=== PATIENT | male | born 1950 | race African-American/Black ===

== ENCOUNTER → 2016-04-15 | Outpatient (CLI) | payer MEDICARE ==
[~2016-04-15] MED LIST: ARGI500T PO; DESV100T PO; MAGN250T5 PO; PREG75CA PO; TEST75PE6 IL
--- NOTE | 2016-04-15 15:04 | KCIC ---
PROCEDURE Lumbar spine, five views. HISTORY Pain. FINDINGS Frontal, lateral, bilateral oblique and coned sacral views lumbar spine are obtained. There is no significant listhesis. The vertebral bodies are normal in height. There are bulky anterior osteophytes at multiple lumbar levels. There is facet arthropathy at the lower lumbar levels. There are calcifications within the upper abdomen secondary to the sequela of chronic pancreatitis. There is also a stone within the inferior right kidney and there is cholelithiasis. There are degenerative changes involving both hips. IMPRESSION 1. Multilevel degenerative change. 2. No acute osseous finding. 3. Extensive pancreatic calcifications due to the sequela of chronic pancreatitis. Right nephrolithiasis. Cholelithiasis. Electronically signed by: Kristin Olmedo (Apr 15, 2016 15:02:55)
== END | disposition home or self-care (01) ==
LOC: KCIC 13:52
PROVIDERS: ATTEND Internal Medicine
DX: M54.5 Low back pain (principal); G89.29 Other chronic pain
CPT/HCPCS: 72110

== ENCOUNTER 2016-07-15 13:28 | Emergency (ER) | payer MEDICARE ==
[~2016-07-15] VITALS: Ht 182.9 cm; Wt 81.6 kg
[2016-07-15 13:46] VITALS: BP 159/71
[2016-07-15] MEDS ORDERED: NAPR500T PO (14:07)
[2016-07-15] MEDS ORDERED: ACET-704 PO (14:07)
--- NOTE | 2016-07-15 14:07 | PHYS DOC ---
Past Medical History Past Medical History: Diabetes-Type II, Hypertension Past Surgical History: Tonsillectomy, Other Additional Past Surgical Histo: left toe Alcohol Use: Occasionally Drug Use: None Adult General Chief Complaint Chief Complaint: HIP PAIN HPI HPI Patient is a 65 year old male presents to the emergency department with complaints of left lower back pain and left hip pain. Patient states she's had this discomfort for 2 weeks, no known injury. He states occasionally he will move and the pain will radiate to the lateral aspect of the left thigh. No loss of bowel or bladder control no loss of function of lower extremities. No known injury Review of Systems Review of Systems Constitutional: Denies fever or chills [] Eyes: Denies change in visual acuity, redness, or eye pain [] HENT: Denies nasal congestion or sore throat [] Respiratory: Denies cough or shortness of breath [] Cardiovascular: No additional information not addressed in HPI [] GI: Denies abdominal pain, nausea, vomiting, bloody stools or diarrhea [] : Denies dysuria or hematuria [] Musculoskeletal: Left low back pain and left hip pain Integument: Denies rash or skin lesions [] Neurologic: Denies headache, focal weakness or sensory changes [] Endocrine: Denies polyuria or polydipsia [] Allergies Allergies Allergies Coded Allergies Type Severity Reaction Last Updated Verified No Known Drug Allergies 03/30/14 No Physical Exam Physical Exam Constitutional: Well developed, well nourished, no acute distress, non-toxic appearance. [] HENT: Normocephalic, atraumatic, bilateral external ears normal, oropharynx moist, no oral exudates, nose normal. [] Eyes: PERRLA, EOMI, conjunctiva normal, no discharge. [] Neck: Normal range of motion, no tenderness, supple, no stridor. [] Cardiovascular:Heart rate regular rhythm, no murmur [] Lungs & Thorax: Bilateral breath sounds clear to auscultation [] Abdomen: Bowel sounds normal, soft, no tenderness, no masses, no pulsatile masses. [] Skin: Warm, dry, no erythema, no rash. [] Back: Mild tenderness over the left sacroiliac crest in the lateral hip. Negative straight raise leg test. No saddle anesthesia. Muscle strength 5 over 5. No CVAT. Extremities: No tenderness, no cyanosis, no clubbing, ROM intact, no edema. [] Neurologic: Alert and oriented X 3, normal motor function, normal sensory function, no focal deficits noted. [] Psychologic: Affect normal, judgement normal, mood normal. [] Current Patient Data Vital Signs Vital Signs Date Time Temp Pulse Resp B/P (MAP) Pulse Ox O2 Delivery O2 Flow Rate FiO2 07/15/16 13:46 98.3 71 16 97 Room Air 98.3 EKG EKG [] Radiology/Procedures Radiology/Procedures [] Course & Med Decision Making Course & Med Decision Making Pertinent Labs and Imaging studies reviewed. (See chart for details) [] Dragon Disclaimer Dragon Disclaimer This electronic medical record was generated, in whole or in part, using a voice recognition dictation system. Departure Departure Impression: Primary Impression: Sciatica Disposition: 01 HOME, SELF-CARE Condition: STABLE Referrals: CANDI BOO MD (PCP) Patient Instructions: Sciatica Scripts Acetaminophen With Codeine (TYLENOL WITH CODEINE #3 TABLET) 1 Each Tablet 1 TAB PO PRN Q6HRS Y for PAIN, #20 TAB Prov: FELIZ WATSON APRN 07/15/16 Naproxen (NAPROSYN) 500 Mg Tablet 1 TAB PO BID Y for PAIN, #20 TAB 1 Refill Prov: FELIZ WATSON APRN 07/15/16 FELIZ WATSON APRN Jul 15, 2016 14:07
== END 2016-07-15 14:23 | disposition home or self-care (01) ==
LOC: ER 13:28
DX: M54.42 Lumbago with sciatica, left side (principal); I10 Essential (primary) hypertension; E11.9 Type 2 diabetes mellitus without complications
CPT/HCPCS: 99283